=== PATIENT | female | born 1975 | race Caucasian/White ===

== ENCOUNTER → 2016-06-10 | Outpatient (REF) | payer MEDICARE, MEDICAID ==
[2016-06-20 08:07] LABS: BENZODIAZEPINES, URINE SCREEN Negative ng/mL (Cutoff=200); METHADONE, URINE SCREEN Negative ng/mL (Cutoff=300); pH, URINE 5.7 (4.5-8.9)
== END ==
LOC: M SFHCADAM 13:40
PROVIDERS: ATTEND Physician Assistant Medical
DX: M51.36 Other intervertebral disc degeneration, lumbar region (principal); Z23 Encounter for immunization

== ENCOUNTER → 2016-06-19 | Outpatient (CLI) | payer MEDICARE, MEDICAID ==
--- NOTE | 2016-06-19 14:53 | REPMRS ---
Patient History The patient states she has not had a clinical breast exam in over a year. Patient is postmenopausal. Family history of breast cancer in maternal aunt under age 50 and breast cancer in paternal grandmother at age 50 or over. Benign excisional biopsy of the left breast, 2000. Taking estrogen for 7 years. Digital Woman Screen Mammo: June 19, 2016 - Exam #: [id number] Bilateral CC and MLO view(s) were taken. Technologist: Clarita Chaparro, Technologist Prior study comparison: January 17, 2011, bilateral diagnostic mammogram, performed at [facility]. FINDINGS: There are scattered fibroglandular densities. There has been no change in the appearance of the mammogram from the prior studies. There is a mild amount of residual fibroglandular tissue which is fairly symmetric. There is no interval development of dominant mass, architectural distortion, or clustered microcalcification suggestive of malignancy. ASSESSMENT: BI-RADS/ACR category 1 mammogram. Negative. Recommendation Routine screening mammogram in 1 year (for women over age 40). This mammogram was interpreted with the aid of an FDA-approved computer-aided dectection system. Electronically Signed By: Taran Moctezuma MD 06/19/16 [id number]
== END ==
LOC: M WHC 13:11
PROVIDERS: ATTEND Physician Assistant Medical
DX: Z12.31 Encounter for screening mammogram for malignant neoplasm of breast (principal)

== ENCOUNTER → 2017-01-20 | Outpatient (CLI) | payer MEDICARE, MEDICAID ==
[~2017-01-20] MED LIST: PROHANCE 279.3MG/ML 15ML VIAL (A9576) As Ordered ONE
--- NOTE | 2017-01-20 18:40 | REP ---
MRI left foot without with contrast: 01/20/2017: Clinical history: Chronic plantar distal left forefoot pain. Axial T1, T2 fat suppressed T1 images with sagittal T2 STIR and coronal T1 and fat suppressed T2 sequences provided. After infusion of 11 mL of ProHance, axial and coronal fat suppressed T1 sequences provided. Marrow signal in the metatarsals including their shafts and heads normal on all sequences. Likewise the phalanges and tarsal bones were grossly intact. Trace amount of fluid in joints and bursal recesses about the joint. On the axial images to the plane of the foot between the second and third metatarsal heads on its plantar aspect, there 5 x 4 x 5 mm hypointense focus which shows some minimal enhancement around it on the gadolinium images and this is suspicious for a Smith's neuroma. The flexor tendons about the toes are grossly intact. Sesamoid bones at the first MTP joint intact. Intrinsic muscles of the foot showed no signal abnormality. No abnormal fluid collections, bone bruise or mass in the adjacent soft tissues. The Achilles tendon grossly intact. No plantar calcaneal spur. The contrast was given only that small area between the distal second and third metatarsal heads. Plantar surface showed some adjacent enhancement. No marrow enhancement. Impression: 1. Findings suggest a 5 x 4 x 5 mm nodule in the plantar aspect distal left forefoot between second and third metatarsal heads and suggestive of a Smith's neuroma. No other finding. Signed by Renny Gerard MD 01/20/2017 08:40 P
== END ==
LOC: M RAD 14:46
PROVIDERS: ATTEND Podiatrist Foot & Ankle Surgery
DX: G57.60 Lesion of plantar nerve, unspecified lower limb (principal)
CPT/HCPCS: 73720; A9576

== ENCOUNTER 2019-03-06 17:41 | Emergency (ER) | payer MEDICAID, MEDICARE ==
[~2019-03-06] VITALS: Ht 167.6 cm; Wt 59.1 kg
[2019-03-06] MEDS ORDERED: KETOROLAC 60 MG/2 ML VIAL (J1885) IM ONE (18:15)
[2019-03-06] MEDS ORDERED: traMADol 50 MG TAB PO ONE (18:15)
[2019-03-06] MEDS ORDERED: carisoprodoL 350 MG TAB PO ONE (18:15)
[2019-03-06 21:07] VITALS: BP 147/87
--- NOTE | 2019-03-06 21:37 | REPVR ---
PROCEDURE INFORMATION: Exam: XR Chest, 2 Views Exam date and time: 03/06/2019 8:53 PM Age: 43 years old Clinical indication: Condition or disease; Other: See addional exam info below; Additional info: Small right apical ptx noted on cxr at [facility] approximately 7 hrs ago, eval for increase TECHNIQUE: Imaging protocol: XR of the chest Views: 2 views. COMPARISON: DX RIBS UNILATERAL WITH PA CHEST 03/06/2019 1:32 PM FINDINGS: Lungs: Unremarkable. No consolidation. Pleural space: Right apical pneumothorax with approximately 2.0 cm of collapse from the lung apex is not significantly changed. No pneumothorax on the left. No pleural effusion. Heart/Mediastinum: Unremarkable. No cardiomegaly. Bones/joints: Unremarkable. IMPRESSION: 1. Stable right apical pneumothorax. 2. No new abnormalities. Electronically signed by: Yoseph Beatty On 03/06/2019 21:37:10 PM
== END 2019-03-06 21:08 | disposition home or self-care (01) ==
LOC: M ED 17:41
DX: J93.9 Pneumothorax, unspecified (principal); I73.00 Raynaud's syndrome without gangrene; F17.200 Nicotine dependence, unspecified, uncomplicated; Z86.79 Personal history of other diseases of the circulatory system; Z98.890 Other specified postprocedural states
CPT/HCPCS: 71046; 96372; 99283; J1885

== ENCOUNTER → 2019-03-06 | Outpatient (CLI) | payer MEDICARE, MEDICAID ==
--- NOTE | 2019-03-06 14:34 | REP ---
Right rib series: Five views including PA chest. History: Contusion of the right back. Findings: PA chest radiograph shows a small right apical pneumothorax. No hydrothorax is seen. Mediastinum is not widened. Lung akers are otherwise clear. Heart size is normal. Multiple views of the right ribcage show no visible rib fracture or bony destructive lesion. Impression: No rib fracture seen. There is however a small right apical pneumothorax noted. Follow-up is suggested. Electronically Signed by Mario Will MD 03/06/2019 02:24 P
--- NOTE | 2019-03-06 14:35 | REP ---
Thoracic spine series: Three views. History: Contusion. Findings: Thoracic vertebral body heights are preserved. No fracture or collapse is seen. No paravertebral soft-tissue mass is seen. There is a minimal levoconvex curvature in the upper thoracic spine. No paravertebral soft-tissue mass is seen. Impression: Negative thoracic spine radiographs. No fracture seen. Electronically Signed by Mario Will MD 03/06/2019 02:25 P
== END ==
LOC: M ADAMS 13:44
PROVIDERS: ATTEND Physician Assistant
DX: S20.229A Contusion of unspecified back wall of thorax, initial encounter (principal); S20.221A Contusion of right back wall of thorax, initial encounter

== ENCOUNTER → 2019-03-08 | Outpatient (CLI) | payer MEDICARE ==
--- NOTE | 2019-03-08 12:35 | REP ---
CT of the chest without IV contrast: There is a small right pneumothorax anteriorly and a small right pneumothorax posteriorly. There is no hemothorax. There is no pulmonary contusion. No rib fractures are identified. There is no sternal fracture. There is no clavicle or scapular fracture. There is no mediastinal hematoma. No periaortic hematoma. Cardiac size is normal. In the upper abdomen the visualized areas of the liver, pancreas, spleen and renal upper poles are unremarkable. Impression: There is a small right pneumothorax. No hemothorax or pulmonary contusion. No mediastinal hematoma. No fractures are identified. Electronically Signed by Taran Bethea MD 03/08/2019 12:27 P
--- NOTE | 2019-03-08 12:46 | REP ---
PA and lateral chest: Comparison is 03/06/2019. The known small right apical pneumothorax has decreased in size. Lung akers otherwise clear. Cardiac size is normal. The jennifer, mediastinum, skeletal structures are unremarkable. Impression: The small right apical pneumothorax has decreased in size. Electronically Signed by Taran Bethea MD 03/08/2019 12:37 P
--- NOTE | 2019-03-08 13:25 | REP ---
CT scan of the thoracic spine without contrast: History: Rib pain. Traumatic pneumothorax. Thoracic spine pain. Comparison thoracic spine radiographs March 06, 2019. Findings: There is a Schmorl's node at the superior endplate at T3 and there is a very subtle anterior wedging at the T3 vertebral body. No paravertebral soft-tissue edema or cortical step-off is seen and this is most compatible with chronic change. There is a bone island in the T4 vertebral body. There are degenerative disc changes at T6-7 through T8-9. No definite fracture or collapse is seen. There is no visible posterior rib fracture. There is a tiny amount of pleural air in the paravertebral region on the right side at the level of the T10 vertebral body consistent with the history of right-sided pneumothorax. There are bullae in the apices bilaterally. No posterior element or posterior rib fracture is appreciated. Impression: Schmorl's node at the superior endplate of T3 with subtle anterior wedging at T3. No cortical step-off is seen. Age indeterminate, possibly old. No other thoracic spine fracture seen. There are degenerative disc changes in the mid thoracic spine. Electronically Signed by Mario Will MD 03/08/2019 02:39 P
== END ==
LOC: M RAD 11:29
PROVIDERS: ATTEND Physician Assistant Medical
DX: S27.0XXA Traumatic pneumothorax, initial encounter (principal); W19.XXXA Unspecified fall, initial encounter; Y92.9 Unspecified place or not applicable; M51.34 Other intervertebral disc degeneration, thoracic region; R07.81 Pleurodynia
CPT/HCPCS: 71046; 71250; 72128; G0463

== ENCOUNTER → 2019-03-14 | Outpatient (CLI) | payer MEDICARE ==
--- NOTE | 2019-03-14 17:13 | REP ---
PA and lateral chest: Comparison is 03/06/2019. The small right apical pneumothorax identified previously has resolved. The lung akers are clear. The cardiac size is normal. The jennifer, mediastinum, and skeletal structures are unremarkable. Impression: Negative PA and lateral chest. The right apical pneumothorax has resolved. Electronically Signed by Taran Bethea MD 03/14/2019 05:04 P
== END ==
LOC: M ADAMS 14:27
PROVIDERS: ATTEND Physician Assistant Medical
DX: S27.0XXD Traumatic pneumothorax, subsequent encounter (principal)

== ENCOUNTER → 2019-04-08 | Outpatient (REF) | payer MEDICARE, MEDICAID | LOC: M LAB REF 16:08 | PROVIDERS: ATTEND Nurse Practitioner Family | DX: J02.9 Acute pharyngitis, unspecified (principal) ==

== ENCOUNTER → 2019-04-12 | Outpatient (REF) | payer MEDICARE, MEDICAID ==
[2019-04-12 18:41] LABS: MONO REFLEX EBV VCA IgM NEGATIVE (NEGATIVE)
[2019-04-15 08:06] LABS: CHLAMYDIA PHARYNGEAL APTIMA Negative (Negative); GC PHARYNGEAL APTIMA Negative (Negative)
[2019-04-16 00:06] LABS: COXSACKIE TYPE A-16 IgM Negative titer (Neg:<1:10); COXSACKIE TYPE A-24 IgM Negative titer (Neg:<1:10); COXSACKIE TYPE A-7 IgM Negative titer (Neg:<1:10); COXSACKIE TYPE A-9 IgM Negative titer (Neg:<1:10); COXSACKIE TYPE B1 Negative (Neg:<1:8); COXSACKIE TYPE B2 Negative (Neg:<1:8); COXSACKIE TYPE B3 Negative (Neg:<1:8); COXSACKIE TYPE B4 Negative (Neg:<1:8); COXSACKIE TYPE B5 Negative (Neg:<1:8); EBV VIRAL CAPSID AG IgM <36.0 U/mL (0.0-35.9); HSV IgM TYPES 1&2 1.58 Ratio (0.00-0.90)
== END ==
LOC: M SFHCPLAZ 14:00
PROVIDERS: ATTEND Physician Assistant
DX: J02.9 Acute pharyngitis, unspecified (principal)
CPT/HCPCS: 36415; 86308; 86658; 86665; 86694; 87070; 87205; 87491; 87591; G0463

== ENCOUNTER → 2021-05-03 | Outpatient (REF) | payer MEDICAID ==
[2021-05-03 17:26] LABS: BASO # 0.1 10^3/uL (0.0-0.2); BASO % 0.9 % (0.0-1.0); EOS # 0.2 10^3/uL (0.0-0.5); EOS % 2.2 % (0.0-3.0); HEMATOCRIT 47.8 % (36.0-47.0); HEMOGLOBIN 16.1 g/dl (12.0-15.5); LYMPH # 2.3 10^3/uL (1.5-5.0); LYMPH % 33.5 % (24.0-44.0); MEAN CORPUSCULAR HEMOGLOBIN 33.1 pg (27.0-33.0); MEAN CORPUSCULAR HGB CONC 33.7 g/dl (32.0-36.5); MEAN CORPUSCULAR VOLUME 98.4 fl (80.0-96.0); MONO # 0.5 10^3/uL (0.0-0.8); MONO % 7.9 % (2.0-8.0); NEUTROPHILS # 3.7 10^3/uL (1.5-8.5); NEUTROPHILS % 54.8 % (36.0-66.0); PLATELET COUNT, AUTOMATED 261 10^3/uL (150-450); RED BLOOD COUNT 4.86 10^6/uL (4.00-5.40); WHITE BLOOD COUNT 6.8 10^3/uL (4.0-10.0)
[2021-05-03 18:01] LABS: ALBUMIN 4.8 GM/DL (3.2-5.2); ALT/SGPT 21 U/L (12-78); BILIRUBIN,TOTAL 0.4 MG/DL (0.2-1.0); BLOOD UREA NITROGEN 26 MG/DL (7-18); CALCIUM LEVEL 9.7 MG/DL (8.5-10.1); CARBON DIOXIDE LEVEL 31 MEQ/L (21-32); CHLORIDE LEVEL 105 MEQ/L (98-107); CHOLESTEROL LEVEL 264 MG/DL (<200); CHOLESTEROL RISK RATIO 3.259 (<5); CREATININE FOR GFR 0.82 MG/DL (0.55-1.30); GLOMERULAR FILTRATION RATE > 60.0 (>58); GLUCOSE, FASTING 102 MG/DL (70-100); HDL CHOLESTEROL 81 MG/DL (>40); LDL CHOLESTEROL 172 MG/DL (<100); NON-HDL-C 183 MG/DL; POTASSIUM SERUM 4.8 MEQ/L (3.5-5.1); SODIUM LEVEL 139 MEQ/L (136-145); TOTAL PROTEIN 7.3 GM/DL (6.4-8.2); TRIGLYCERIDES LEVEL 57 MG/DL (<150)
[2021-05-03 18:03] LABS: TOTAL 25(OH) VITAMIN D 16.2 NG/ML (30.0-100.0)
== END ==
LOC: M SFHCADAM 13:43
PROVIDERS: ATTEND Physician Assistant Medical
DX: F32.9 Major depressive disorder, single episode, unspecified (principal); F17.200 Nicotine dependence, unspecified, uncomplicated; K21.9 Gastro-esophageal reflux disease without esophagitis

== ENCOUNTER → 2021-07-06 | Outpatient (CLI) | payer MEDICAID ==
[~2021-07-06] MED LIST changes: +ACET-716 PO; +BACL10TA2 PO; +ESTR1TD TD; +GABA-1171 PO; +METO1TAB7 PO; +NAPR-885 PO; +PANT40TA29 PO; -PROHANCE 279.3MG/ML 15ML VIAL (A9576) As Ordered ONE; +TRAM50TA2 PO; +VALA500T5 PO; +VITA100093 PO
== END ==
LOC: M LABSMTC 10:58
PROVIDERS: ATTEND Anesthesiology
DX: Z01.812 Encounter for preprocedural laboratory examination (principal); Z20.822 Contact with and (suspected) exposure to COVID-19

== ENCOUNTER 2021-07-10 06:22 | Day surgery (SDC) | payer MEDICAID ==
[~2021-07-10] VITALS: Ht 167.6 cm; Wt 65.4 kg
[~2021-07-10 06:22] MED LIST changes: +ceFAZolin SOD 2 GM in IV 1 EA IV ONE
[2021-07-10] MEDS ORDERED: LR 1,000 ML IV SCH ×2 (06:45→08:35)
[2021-07-10] MEDS ORDERED: INSULIN LISPRO (NovoLOG) PER UNIT SC PRN ×2 (06:45→08:35)
[2021-07-10] MEDS ORDERED: BACITRACIN OINTMENT 30GM TUBE As Ordered ONE (07:14)
[2021-07-10] MEDS ORDERED: BUPIVACAINE HCL 0.25% 30ML VIAL As Ordered ONE (07:15)
[2021-07-10] MEDS ORDERED: CLINDAMYCIN 900 MG in IV 1 EA IV ONE (07:15)
[2021-07-10] MEDS ORDERED: dexameTHASONE 4 MG/ML 1ML VIAL (J1100 PER 1MG) As Ordered ONE (07:56)
[2021-07-10] MEDS ORDERED: MIDAZOLAM INJ 2MG/2ML VIAL (J2250 PER 1MG) As Ordered ONE (07:56)
[2021-07-10] MEDS ORDERED: propofoL 200 MG/20 ML VIAL As Ordered ONE (07:56)
[2021-07-10] MEDS ORDERED: LIDOCAINE 2% 100MG/5ML SDV (FOR ANES.) As Ordered ONE (07:56)
[2021-07-10] MEDS ORDERED: DESFLURANE 240 ML INHALANT As Ordered ONE (07:56)
[2021-07-10] MEDS ORDERED: fentaNYL 100 MCG/2 ML INJECTION As Ordered ONE ×2 (07:56→08:33)
[2021-07-10] MEDS ORDERED: ONDANSETRON 4MG/2ML VIAL As Ordered ONE (07:56)
[2021-07-10] MEDS ORDERED: KETOROLAC 60MG 2ML VIAL As Ordered ONE (07:56)
[2021-07-10] MEDS ORDERED: ACETAMINOPHEN 1000MG 100ML IV BTL (OFIRMEV) (J0131 PER 10MG) As Ordered ONE (07:56)
[2021-07-10] MEDS ORDERED: METOCLOPRAMIDE INJ 10MG/2ML VIAL (J2765 PER 1) As Ordered ONE (07:56)
[2021-07-10] MEDS ORDERED: METOCLOPRAMIDE INJ 10MG/2ML VIAL (J2765 PER 1) IV PRN (08:35)
[2021-07-10] MEDS ORDERED: ONDANSETRON 4MG/2ML VIAL IV PRN (08:35)
[2021-07-10] MEDS ORDERED: fentaNYL 100 MCG/2 ML INJECTION IV PRN (08:35)
[2021-07-10] MEDS ORDERED: oxyCODONE 5MG TAB PO PRN (08:35)
[2021-07-10] MEDS ORDERED: PERC5TAB12 PO (08:56)
[2021-07-10] MEDS: HYDROMORPHONE HCL 0.5 MG/ 0.5 ML SYRINGE (J1170 PER 1) IV PRN ×2 (09:03→09:10)
[2021-07-10 09:43] VITALS: BP 140/85
== END 2021-07-10 10:15 | disposition home or self-care (01) ==
LOC: M SDC 06:22
PROVIDERS: ATTEND Orthopaedic Surgery Hand Surgery
DX: M20.011 Mallet finger of right finger(s) (principal); L90.5 Scar conditions and fibrosis of skin
CPT/HCPCS: 26433; 76000; J0131; J1100; J1170; J1885; J2250; J2405; J2765; J3010

== ENCOUNTER → 2021-07-16 | Outpatient (CLI) | payer MEDICAID ==
[~2021-07-16] MED LIST changes: +PERC5TAB12 PO; -ceFAZolin SOD 2 GM in IV 1 EA IV ONE
== END ==
LOC: M SOG 15:01
PROVIDERS: ATTEND Physician Assistant
DX: M20.011 Mallet finger of right finger(s) (principal)

== ENCOUNTER → 2022-05-30 | Outpatient (REF) | payer MEDICAID, MEDICARE | LOC: M SFHCDERM 17:52 | PROVIDERS: ATTEND Nurse Practitioner Family | DX: R23.8 Other skin changes (principal); D22.62 Melanocytic nevi of left upper limb, including shoulder ==

== ENCOUNTER → 2023-05-20 | Outpatient (REF) | payer MEDICAID, SELFPAY | LOC: M SFHCCLAY 14:39 | PROVIDERS: ATTEND Physician Assistant | DX: R05.1 Acute cough (principal) ==

== ENCOUNTER → 2024-05-19 | Outpatient (REF) | payer OTHER ==
[2024-05-19 18:30] LABS: BASO # 0.1 10^3/uL (0.0-0.2); BASO % 0.7 % (0.0-1.0); EOS # 0.1 10^3/uL (0.0-0.5); EOS % 1.9 % (0.0-3.0); HEMATOCRIT 44.6 % (36.0-47.0); HEMOGLOBIN 15.4 g/dl (12.0-15.5); LYMPH # 2.5 10^3/uL (1.5-5.0); LYMPH % 37.3 % (24.0-44.0); MEAN CORPUSCULAR HEMOGLOBIN 33.1 pg (27.0-33.0); MEAN CORPUSCULAR HGB CONC 34.5 g/dl (32.0-36.5); MEAN CORPUSCULAR VOLUME 95.9 fl (80.0-96.0); MONO # 0.5 10^3/uL (0.0-0.8); MONO % 7.3 % (2.0-8.0); NEUTROPHILS # 3.5 10^3/uL (1.5-8.5); NEUTROPHILS % 52.7 % (36.0-66.0); PLATELET COUNT, AUTOMATED 270 10^3/uL (150-450); RED BLOOD COUNT 4.65 10^6/uL (4.00-5.40); WHITE BLOOD COUNT 6.7 10^3/uL (4.0-10.0)
[2024-05-19 18:36] LABS: ALBUMIN 3.9 G/DL (3.2-5.2); ALKALINE PHOSPHATASE 89 U/L (35-104); ALT/SGPT 19 U/L (7.0-40); AST/SGOT 16 U/L (<34); BILIRUBIN,TOTAL 0.4 MG/DL (0.3-1.2); BLOOD UREA NITROGEN 13 MG/DL (9-23); CALCIUM LEVEL 9.6 MG/DL (8.5-10.1); CARBON DIOXIDE LEVEL 29 MMOL/L (20-31); CHLORIDE LEVEL 104 MMOL/L (98-107); CHOLESTEROL LEVEL 242 MG/DL (<200); CHOLESTEROL RISK RATIO 3.21 (<5); GLOMERULAR FILTRATION RATE > 60.0 (>58); GLUCOSE, FASTING 97 MG/DL (60-100); HDL CHOLESTEROL 75.3 MG/DL (>40); LDL CHOLESTEROL 144.1 MG/DL (<100); NON-HDL-C 166.7 MG/DL; POTASSIUM SERUM 4.5 MMOL/L (3.5-5.1); SODIUM LEVEL 141 MMOL/L (136-145); THYROID STIMULATING HORMONE 2.913 uIU/ML (0.55-4.78); TRIGLYCERIDES LEVEL 113 MG/DL (<150)
[2024-05-19 18:37] LABS: TOTAL 25(OH) VITAMIN D 25.9 NG/ML (20.0-100.0)
== END ==
LOC: M SFHCADAM 14:23
PROVIDERS: ATTEND Physician Assistant Medical
DX: I10 Essential (primary) hypertension (principal); F43.10 Post-traumatic stress disorder, unspecified; R00.2 Palpitations; E78.00 Pure hypercholesterolemia, unspecified; E55.9 Vitamin D deficiency, unspecified; S20.96XA Insect bite (nonvenomous) of unspecified parts of thorax, initial encounter; W57.XXXA Bitten or stung by nonvenomous insect and other nonvenomous arthropods, initial encounter